=== PATIENT | male | born 1935 | race Caucasian/White ===

== ENCOUNTER 2016-06-11 11:05 | Inpatient (IN) | payer MEDICARE, OTHER ==
[2016-06-11 12:34] LABS: CHLORIDE,CL 96 mEq/L (98-106); SODIUM,NA 136 mEq/L (136-145)
[2016-06-11] MEDS ORDERED: Sodium Chloride 0.9% 500 ML IV SCH (13:00)
[2016-06-11] MEDS ORDERED: NS + KCl 20mEq/L 1,000 ML IV SCH (13:00)
--- NOTE | 2016-06-11 13:02 | EDM.PDOC ---
ED HPI GENERAL MEDICAL PROBLEM - General Chief Complaint: General Stated Complaint: confusion, incontinent, uncooperative Time Seen by Provider: 06/11/16 11:32 Source of Information: Reports: Patient, RN History Limitations: Reports: Altered mental status - History of Present Illness INITIAL COMMENTS - FREE TEXT/NARRATIVE: This patient is an 81 year old male that presents to the ER. Patient was brought in by family. Family not in room when I assessed patient. The patient upon my assessment is oriented to self and place. He says the year is "May. " The patient during my exam is cooperative. The patient reports to me he is perfect. The patient denies any symptoms or pain. The RN reports that the patient since discharge from the hospital on Sunday has had confusion. RN reports to me the patient fell yesterday without injury. The RN reports the says she has cleaned him up 5 times today. She said she can not take care of him at home. The patient arrives incontinent of urine and bowel. Patient denies guzman, dizziness, n, v, d, f, cp, soa. However, I do believe his history taking is accurate. I will order several labs, ct head, cxr, ekg, ua. Onset Date: 06/01/16 Duration: Day(s): (3), Getting worse Severity: moderate Improves with: Reports: None Worsens with: Reports: None Associated Symptoms: Reports: confusion. Denies: chest pain, cough, cough w sputum, diaphoresis, fever/chills, headaches, loss of appetite, malaise, nausea/ vomiting, rash, seizure, shortness of breath, syncope, weakness - Related Data Allergies Allergy/AdvReac Type Severity Reaction Status Date / Time No Known Allergies Allergy Verified 06/11/16 11:41 Home Meds: Home Meds ALPRAZolam [Xanax] 0.5 - 1 tab PO Q6H PRN 12/16/13 [History] Clopidogrel [Plavix] 75 mg PO DAILY 12/16/13 [History] Fish Oil/[place]-3 Fatty Acids [Fish Oil] 1,200 mg PO DAILY PRN 12/16/13 [History] Lisinopril 2.5 mg PO MOWEFR 12/16/13 [History] Metoprolol Succinate 25 mg PO DAILY 12/16/13 [History] Simvastatin [Zocor] 20 mg PO BEDTIME 12/16/13 [History] Polyethylene Glycol 3350 [Miralax] 17 gm PO DAILY 12/19/13 [History] Furosemide [Lasix] 60 mg PO DAILY #30 tablet 06/07/16 [Rx] Past Medical History HEENT History: Reports: Hard of hearing 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, High cholesterol, Pacemaker Gastrointestinal History: Reports: Chronic constipation Psychiatric History: Reports: Anxiety Social & Family History - Tobacco Use Smoking Status *Q: Former Smoker Years of Tobacco use: 20 Used Tobacco, but Quit: Yes Month Tobacco Last Used: 50 years ago Second Hand Smoke Exposure: No - Alcohol Use Days Per Week of Alcohol Use: 1 Number of Drinks Per Day: 1 Total Drinks Per Week: 1 - Recreational Drug Use Recreational Drug Use: No ED ROS GENERAL - Review of Systems Review Of Systems: See Below Constitutional: Reports: no symptoms HEENT: Reports: No symptoms Respiratory: Reports: no symptoms Cardiovascular: Reports: No symptoms Endocrine: Reports: no symptoms GI/Abdominal: Reports: Stool incontinence : Reports: incontinence Musculoskeletal: Reports: no symptoms Skin: Reports: no symptoms Neurological: Reports: confusion Psychiatric: Reports: No symptoms Hematologic/Lymphatic: Reports: no symptoms Immunologic: Reports: no symptoms ED EXAM, GENERAL - Physical Exam Exam: See Below Exam Limited By: Altered mental status General Appearance: alert, WD/WN, no apparent distress Eye Exam: bilateral eye: normal inspection, PERRL Ears: normal external exam, normal canal, hearing grossly normal, normal TMs Ear Exam: bilateral ear: auricle normal, canal normal, TM normal Nose: normal inspection, normal mucosa, no blood Throat/Mouth: Normal inspection, Normal lips, Normal gums, Normal oropharynx, Normal voice, No airway compromise Head: atraumatic, normocephalic Neck: normal inspection, supple, non-tender, full range of motion Respiratory/Chest: no respiratory distress, lungs clear, normal breath sounds, no accessory muscle use Cardiovascular: normal peripheral pulses, regular rate, rhythm, no gallop, no JVD, no murmur, no rub Peripheral Pulses: 2+: radial (L), radial (R), posterior tibial (L), posterior tibial (R), dorsalis pedis (L), dorsalis pedis (R) GI/Abdominal: normal bowel sounds, soft, non tender, no organomegaly, no distention, no abnormal bruit, no mass Back Exam: normal inspection, full range of motion Extremities: normal inspection, normal range of motion, non-tender, normal capillary refill, pedal edema (+1 BLE. ) Neurological: alert, confused (oreinted to self and place. ), abnormal gait Psychiatric: normal affect, normal mood Skin Exam: Warm, Dry, Intact, Normal color, No rash Lymphatic: no adenopathy EKG INTERPRETATION EKG Date: 06/11/16 Time: 12:34 Rate (beats/min): 82 EKG Interpretation Comments: artifact. No ST elevations. Course - Vital Signs Last Recorded V/S: Last Vital Signs Temp 97.6 F 06/11/16 11:20 Pulse 86 06/11/16 11:20 Resp 16 06/11/16 11:20 BP 153/78 H 06/11/16 11:20 Pulse Ox 98 06/11/16 11:20 - Orders/Labs/Meds Orders: Active Orders 24 hr Category Date Time Status Patient Status Manage Transfer [TRANSFER] Routine ADT 06/11/16 14:04 Ordered EKG Documentation Completion [RC] STAT Care 06/11/16 11:50 Inactive Chest 1V Frontal [CR] Stat Exams 06/11/16 11:50 Taken Head wo Cont [CT] Stat Exams 06/11/16 11:50 Taken C DIFFICILE BY DNA [RM] Stat Lab 06/11/16 13:46 Ordered CULTURE BLOOD [BC] Stat Lab 06/11/16 12:00 Received CULTURE BLOOD [BC] Stat Lab 06/11/16 12:05 Received STOOL CULTURE [MREF] Stat Lab 06/11/16 13:46 Ordered UA W/MICROSCOPIC [URIN] Stat Lab 06/11/16 11:50 Uncollected WBC, STOOL [OP] Stat Lab 06/11/16 13:46 Ordered NS + KCl 20mEq/L [Normal Saline with 20 mEq KCl] 1,000 Med 06/11/16 13:00 Active ml IV ASDIRECTED Sodium Chloride 0.9% [Normal Saline] 500 ml Med 06/11/16 13:00 Active IV .BOLUS Blood Culture x2 Reflex Set [OM.PC] Stat Oth 06/11/16 11:50 Ordered Resuscitation Status Routine Resus Stat 06/11/16 14:05 Ordered Medication Orders Sodium Chloride (Normal Saline) 500 mls @ 500 mls/hr IV .BOLUS MARA Potassium Chloride/Sodium Chloride (Normal Saline With 20 Meq Kcl) 1,000 mls @ 100 mls/hr IV ASDIRECTED [facility] Labs: Laboratory Tests 06/11/16 06/11/16 06/11/16 Range/Units 12:00 12:00 12:05 WBC 14.5 H (5.0-10.0) 10^3/uL RBC 4.96 (4.50-6.00) 10^6/uL Hgb 15.0 (14.0-18.0) g/dL Hct 42.7 (40.0-54.0) % MCV 86.1 (82.0-94.0) fL MCH 30.2 (27.0-32.0) pg MCHC 35.1 (33.0-38.0) g/dL RDW Coeff of Amadeo 12.9 (11.0-15.0) % Plt Count 188 (150-400) 10^3/uL Neut % (Auto) 71.7 (35-85) % Lymph % (Auto) 17.7 (10-55) % Clare % (Auto) 10.2 (0-16) % Eos % (Auto) 0.3 (0-5) % Baso % (Auto) 0.1 (0-3) % Neut # 10.39 H (1.80-7.00) 10^3/uL Lymph # 2.56 (1.00-4.80) 10^3/uL Clare # 1.47 H (0.00-0.80) 10^3/uL Eos # 0.04 (0.00-0.45) 10^3/uL Baso # 0.02 10^3/uL Sodium 136 (136-145) mEq/L Potassium 2.7 L* D (3.5-5.0) mEq/L Chloride 96 L (98-106) mEq/L Carbon Dioxide 32 (21-32) mmol/L BUN 16 D (7-18) mg/dL Creatinine 1.1 (0.7-1.3) mg/dL Est Cr Clr Drug Dosing TNP Estimated GFR (MDRD) > 60 (>=60) mL/min Glucose 121 H (75-99) mg/dL Lactic Acid 1.4 (0.4-2.0) mmol/L Calcium 8.9 (8.4-10.1) mg/dL Total Bilirubin 1.6 H (0.0-1.0) mg/dL AST 23 (15-37) U/L ALT 36 (12-78) U/L Alkaline Phosphatase 70 (46-116) U/L Troponin I 0.051 (0.00-0.06) ng/mL C-Reactive Protein 0.4 (0.2-0.8) mg/dL Hcf-G-[id number] Pept 2728 H (0-1000) pg/nL Total Protein 6.5 (6.4-8.2) g/dL Albumin 3.4 (3.4-5.0) g/dL Meds: Medications Generic Name Dose Route Start Last Admin Trade Name Freq PRN Reason Stop Dose Admin Sodium Chloride 500 mls @ 500 mls/hr 06/11/16 13:00 Normal Saline IV .BOLUS MARA Potassium Chloride/Sodium Chloride 1,000 mls @ 100 mls/hr 06/11/16 13:00 Normal Saline With 20 Meq Kcl IV ASDIRECTED MARA Discontinued Medications Generic Name Dose Route Start Last Admin Trade Name Freq PRN Reason Stop Dose Admin Loperamide HCl 2 mg 06/11/16 13:13 06/11/16 13:43 Imodium PO 06/11/16 13:14 2 mg ONETIME ONE Administration - Radiology Interpretation Free Text/Narrative:: CXR: Discussed with radiologist; no infiltreates, no pulmonary edema. negative. CT: Discussed with radiologist; negative. CT Results Date: 06/11/16 CT Results Time: 13:40 - Re-Assessments/Exams Free Text/Narrative Re-Assessment/Exam: 06/11/16 14:24 Patient is being combative hitting the pillow. The patient is now cussing staff. Have ordered Ativan in the inpatient order. 06/11/16 14:28 Patient now has had 6 BM incontinent episodes. Patient was given Immodium. Departure - Departure Time of Disposition: 13:59 Disposition: Admitted As Inpatient 65 Condition: fair Clinical Impression: Hypokalemia, Dehydration Stool incontinence Qualifiers: Fecal incontinence type: full incontinence of feces Qualified Code(s): R15.9 - Full incontinence of feces Urinary incontinence Qualifiers: Urinary Incontinence type: unspecified incontinence Qualified Code(s): R32 - Unspecified urinary incontinence Leukocytosis Qualifiers: Leukocytosis type: lymphocytosis Qualified Code(s): D72.820 - Lymphocytosis ( symptomatic) Altered mental status Qualifiers: Altered mental status type: disorientation Qualified Code(s): R41.0 - Disorientation, unspecified Referrals: Noe Cueto MD [Primary Care Provider] - Forms: ED Department Discharge - My Orders Last 24 Hours: My Active Orders 06/11/16 11:50 EKG Documentation Completion [RC] STAT Chest 1V Frontal [CR] Stat Head wo Cont [CT] Stat UA W/MICROSCOPIC [URIN] Stat Blood Culture x2 Reflex Set [OM.PC] Stat 06/11/16 12:00 CULTURE BLOOD [BC] Stat 06/11/16 12:05 CULTURE BLOOD [BC] Stat 06/11/16 13:00 NS + KCl 20mEq/L [Normal Saline with 20 mEq KCl] 1,000 ml IV ASDIRECTED Sodium Chloride 0.9% [Normal Saline] 500 ml IV .BOLUS 06/11/16 13:46 C DIFFICILE BY DNA [RM] Stat STOOL CULTURE [MREF] Stat WBC, STOOL [OP] Stat 06/11/16 14:04 Patient Status Manage Transfer [TRANSFER] Routine 06/11/16 14:05 Resuscitation Status Routine - Assessment/Plan Last 24 Hours: My Active Orders 06/11/16 11:50 EKG Documentation Completion [RC] STAT Chest 1V Frontal [CR] Stat Head wo Cont [CT] Stat UA W/MICROSCOPIC [URIN] Stat Blood Culture x2 Reflex Set [OM.PC] Stat 06/11/16 12:00 CULTURE BLOOD [BC] Stat 06/11/16 12:05 CULTURE BLOOD [BC] Stat 06/11/16 13:00 NS + KCl 20mEq/L [Normal Saline with 20 mEq KCl] 1,000 ml IV ASDIRECTED Sodium Chloride 0.9% [Normal Saline] 500 ml IV .BOLUS 06/11/16 13:46 C DIFFICILE BY DNA [RM] Stat STOOL CULTURE [MREF] Stat WBC, STOOL [OP] Stat 06/11/16 14:04 Patient Status Manage Transfer [TRANSFER] Routine 06/11/16 14:05 Resuscitation Status Routine Plan: SEE RN NOTE FOR PFSH. PLEASE USE MY ER H&P ADMITTING H&P.
[2016-06-11] MEDS ORDERED: Loperamide 2 MG Cap PO ONE ×2 (13:13→15:13)
[2016-06-11] MEDS ORDERED: Ondansetron 4 MG/2 ML SDV IV PRN (14:38)
[2016-06-11] MEDS ORDERED: Ibuprofen 200 MG Tab PO PRN (14:38)
[2016-06-11] MEDS ORDERED: LORazepam 2 MG/ML Syringe IVPUSH ONE ×3 (14:45→14:54)
[2016-06-11] MEDS ORDERED: LORazepam 2 MG/ML Syringe ONE (15:06)
[2016-06-11] MEDS: LORazepam 2 MG/ML Syringe IVPUSH PRN ×2 (15:24→21:32)
[2016-06-11] MEDS: Enoxaparin 40 MG/0.4 ML Syringe SUBCUT SCH (16:32)
[2016-06-11] MEDS: Vancomycin 125 MG/2.5 ML Oral Solution 2.5 ML UD Cup PO SCH ×2 (16:32→19:39)
[2016-06-11] MEDS: metroNIDAZOLE/Normal Saline 500 MG in Premix Bag 1 BAG IV SCH ×2 (16:32→23:12)
[2016-06-11] MEDS: NS + KCl 20mEq/L 1,000 ML IV SCH (17:56)
[2016-06-11] MEDS: Simvastatin 20 MG Tab PO SCH (19:38)
[2016-06-11] MEDS ORDERED: Haloperidol Lactate 5 MG/ML SDV IVPUSH ONE ×2 (20:00)
[2016-06-12] MEDS: ALPRAZolam 0.25 MG Tab PO PRN (01:31)
[2016-06-12] MEDS: NS + KCl 20mEq/L 1,000 ML IV SCH (05:04)
[2016-06-12] MEDS: metroNIDAZOLE/Normal Saline 500 MG in Premix Bag 1 BAG IV SCH (06:27)
[2016-06-12 07:20] LABS: CHLORIDE,CL 101 mEq/L (98-106); SODIUM,NA 139 mEq/L (136-145)
[2016-06-12] MEDS: LORazepam 2 MG/ML Syringe IVPUSH PRN (07:26)
[2016-06-12] MEDS: Metoprolol Succinate 25 MG Tab.ER PO SCH (07:27)
[2016-06-12] MEDS: Furosemide 20 MG Tab PO SCH ×2 (07:27→08:51)
[2016-06-12] MEDS: Clopidogrel 75 MG Tab PO SCH (07:27)
[2016-06-12] MEDS: Vancomycin 125 MG/2.5 ML Oral Solution 2.5 ML UD Cup PO SCH (07:50)
[2016-06-12] MEDS ORDERED: Vancomycin 1 GM SDV ONE (07:51)
[2016-06-12] MEDS ORDERED: NS + KCl 20mEq/L 1,000 ML IV SCH (08:00)
[2016-06-12] MEDS: Lisinopril 5 MG Tab PO SCH (08:14)
[2016-06-12] MEDS ORDERED: Potassium Chloride 40 MEQ in Premix Bag 1 BAG IV ONE (08:33)
[2016-06-12] MEDS ORDERED: Acetaminophen 650 MG Supp RECTAL PRN (13:20)
[2016-06-12] MEDS ORDERED: Levofloxacin/Dextrose 5%-Water 500 MG in Premix Bag 1 BAG IV SCH (14:00)
--- NOTE | 2016-06-12 14:13 | PCM.PN ---
- General Info Date of Service: 06/12/16 Admission Dx/Problem (Free Text): Hypokalemia Confusion Functional Status: Reports: pain controlled, tolerating diet - Review of Systems General: Reports: other (review of symptoms difficult to obtain as patient does not answer questions asked this am.). Denies: fever HEENT: Reports: no symptoms Pulmonary: Reports: no symptoms Cardiovascular: Reports: no symptoms Gastrointestinal: Reports: Diarrhea (Did have several loose stools in the ER, given Immodium after stool collection. One loose stool since admission.). Denies: Vomiting Genitourinary: Reports: incontinence Neurological: Reports: confusion - Patient Data Vitals - most recent: Last Vital Signs Temp 99.0 F 06/12/16 12:00 Pulse 109 H 06/12/16 12:00 Resp 20 06/12/16 12:00 BP 171/92 H 06/12/16 12:00 Pulse Ox 95 06/12/16 12:00 Weight - most recent: 183 lb 12.8 oz I&O - last 24 hours: Intake & Output 06/11/16 06/12/16 06/12/16 22:59 06:59 14:59 Intake Total 500 1300 Balance 500 1300 Lab Results last 24 hrs: Laboratory Results - last 24 hr 06/12/16 06/12/16 06/12/16 Range/Units 07:05 07:05 07:05 WBC 13.1 H (5.0-10.0) 10^3/uL RBC 4.47 L (4.50-6.00) 10^6/uL Hgb 13.5 L (14.0-18.0) g/dL Hct 38.9 L (40.0-54.0) % MCV 87.0 (82.0-94.0) fL MCH 30.2 (27.0-32.0) pg MCHC 34.7 (33.0-38.0) g/dL RDW Coeff of Amadeo 12.8 (11.0-15.0) % Plt Count 165 (150-400) 10^3/uL Neut % (Auto) 70.4 (35-85) % Lymph % (Auto) 19.4 (10-55) % Stone % (Auto) 9.7 (0-16) % Eos % (Auto) 0.3 (0-5) % Baso % (Auto) 0.2 (0-3) % Neut # 9.19 H (1.80-7.00) 10^3/uL Lymph # 2.53 (1.00-4.80) 10^3/uL Stone # 1.27 H (0.00-0.80) 10^3/uL Eos # 0.04 (0.00-0.45) 10^3/uL Baso # 0.03 10^3/uL Sodium 139 (136-145) mEq/L Potassium 2.8 L* (3.5-5.0) mEq/L Chloride 101 (98-106) mEq/L Carbon Dioxide 31 (21-32) mmol/L BUN 12 (7-18) mg/dL Creatinine 1.0 (0.7-1.3) mg/dL Est Cr Clr Drug Dosing 62.51 mL/min Estimated GFR (MDRD) > 60 (>=60) mL/min Glucose 106 H (75-99) mg/dL Calcium 8.2 L (8.4-10.1) mg/dL Magnesium 1.8 (1.8-2.4) mg/dL Jnn-U-Slrxayljido Pept 3709 H (0-1000) pg/nL Gallo Results last 24 hrs: Microbiology 06/12/16 07:00 Stool for WBCs - Final Stool / Feces NO WBC SEEN 06/12/16 07:00 C. difficile DNA Amplification - Final Stool / Feces NEGATIVE CDIFF BY DNA Med Orders - Current: Current Medications Acetaminophen (Tylenol) 650 mg PO Q4H PRN PRN Reason: Pain (Mild 1-3)/fever Acetaminophen (Tylenol) 650 mg RECTAL Q4H PRN PRN Reason: Fever Last Admin: 06/12/16 13:49 Dose: 650 mg Alprazolam (Xanax) 1 mg PO Q6H PRN PRN Reason: Anxiety/Sleep Last Admin: 06/12/16 01:31 Dose: 1 mg Clopidogrel Bisulfate (Plavix) 75 mg PO DAILY [facility] Last Admin: 06/12/16 07:27 Dose: 75 mg Enoxaparin Sodium (Lovenox) 40 mg SUBCUT Q24H [facility] Last Admin: 06/11/16 16:32 Dose: 40 mg Furosemide (Lasix) 60 mg PO DAILY [facility] Last Admin: 06/12/16 08:51 Dose: 60 mg Ibuprofen (Motrin) 600 mg PO Q6H PRN PRN Reason: Pain (mild 1-3) Lisinopril (Prinivil) 2.5 mg PO MoWeFr@0900 [facility] Last Admin: 06/12/16 08:14 Dose: 2.5 mg Lorazepam (Ativan) 1 mg IVPUSH Q6H PRN PRN Reason: Anxiety Last Admin: 06/12/16 07:26 Dose: 1 mg Metoprolol Succinate (Toprol Xl) 25 mg PO DAILY [facility] Last Admin: 06/12/16 07:27 Dose: 25 mg Non-Formulary Medication (Fish Oil/[place]-3 Fatty Acids [Fish Oil]) 1,200 mg PO DAILY PRN PRN Reason: Supplement Ondansetron HCl (Zofran) 4 mg IV Q6H PRN PRN Reason: Nausea/Vomiting Potassium Chloride (Klor-Con 10) 20 meq PO BIDMEALS [facility] Simvastatin (Zocor) 20 mg PO BEDTIME [facility] Last Admin: 06/11/16 19:38 Dose: 20 mg Discontinued Medications Haloperidol Lactate (Haldol) 2 mg IVPUSH ONETIME ONE Stop: 06/11/16 20:01 Haloperidol Lactate (Haldol) 2.5 mg IVPUSH ONETIME ONE Stop: 06/11/16 20:01 Last Admin: 06/11/16 19:41 Dose: 2.5 mg Sodium Chloride (Normal Saline) 500 mls @ 500 mls/hr IV .BOLUS [facility] Last Admin: 06/11/16 15:05 Dose: 500 mls/hr Potassium Chloride/Sodium Chloride (Normal Saline With 20 Meq Kcl) 1,000 mls @ 100 mls/hr IV ASDIRECTED [facility] Potassium Chloride/Sodium Chloride (Normal Saline With 20 Meq Kcl) 1,000 mls @ 100 mls/hr IV ASDIRECTED [facility] Stop: 06/13/16 08:00 Last Admin: 06/12/16 05:04 Dose: 100 mls/hr Metronidazole 500 mg/ Premix 100 mls @ 100 mls/hr IV Q8H [facility] Last Admin: 06/12/16 06:27 Dose: 100 mls/hr Potassium Chloride/Sodium Chloride (Normal Saline With 20 Meq Kcl) 1,000 mls @ 100 mls/hr IV ASDIRECTED [facility] Potassium Chloride 40 meq/ (Premix) 100 mls @ 25 mls/hr IV ONETIME ONE Stop: 06/12/16 12:32 Last Admin: 06/12/16 08:52 Dose: 25 mls/hr Loperamide HCl (Imodium) 2 mg PO ONETIME ONE Stop: 06/11/16 13:14 Last Admin: 06/11/16 13:43 Dose: 2 mg Loperamide HCl (Imodium) 2 mg PO ONETIME ONE Stop: 06/11/16 15:14 Last Admin: 06/11/16 15:44 Dose: 2 mg Lorazepam (Ativan) 1 mg IVPUSH ONETIME ONE Stop: 06/11/16 14:55 Last Admin: 06/11/16 15:24 Dose: 1 mg Lorazepam (Ativan) Confirm Administered Dose 2 mg .ROUTE .STK-MED ONE Stop: 06/11/16 15:07 Last Admin: 06/11/16 15:37 Dose: Not Given Lorazepam (Ativan) 1 mg IVPUSH ONETIME ONE Stop: 06/11/16 14:46 Last Admin: 06/11/16 14:45 Dose: 1 mg Lorazepam (Ativan) 1 mg IVPUSH ONETIME ONE Stop: 06/11/16 14:51 Last Admin: 06/11/16 14:50 Dose: 1 mg Vancomycin HCl (Vancocin 125 Mg/2.5 Ml Soln) 500 mg PO QID MARA Last Admin: 06/12/16 07:50 Dose: 500 mg Vancomycin HCl (Vancomycin) Confirm Administered Dose 1 gm .ROUTE .STK-MED ONE Stop: 06/12/16 07:52 Last Admin: 06/12/16 07:50 Dose: Not Given - Exam General: other (patient sleepy this am) HEENT: Mucous membr. moist/pink Neck: supple Lungs: Clear to auscultation, Normal respiratory effort Cardiovascular: regular rate, regular rhythm Abdomen: bowel sounds present, soft, no tenderness Extremities: edema (1+ edema) Skin: warm, dry Neurological: no new focal deficit - Problem List & Annotations (1) Altered mental status SNOMED Code(s): 470190345 Code(s): R41.82 - ALTERED MENTAL STATUS, UNSPECIFIED Status: Acute Priority: High Current Visit: Yes Qualifiers: Altered mental status type: disorientation Qualified Code(s): R41.0 - Disorientation, unspecified (2) Hypokalemia SNOMED Code(s): 32702535 Code(s): E87.6 - HYPOKALEMIA Status: Acute Priority: High Current Visit : Yes - Problem List Review Problem List Initiated/Reviewed/Updated: Yes - My Orders Last 24 Hours: My Active Orders 06/12/16 17:30 Potassium Chloride [Klor-Con 10] 20 meq PO BIDMEALS - Assessment Assessment:: Hypokalemia Diarrhea Altered Mental Status - Plan Plan:: Patient is sleepy this am. Nurse reports he was restless earlier this am. Has been uncooperative, combative at times. Had one loose stool since admission. Stool culture and c diff ordered. Awaiting results. Vitals noted. Blood pressure elevated at times. Afebrile. Labs reviewed. WBC 13.5, CRP was normal yesterday. Potassium still low at 2.8. Magnesium normal at 1.8. Will continue with Vanco and Flagyl until c diff report received. IV potassium 40 meq ordered as well as added Kdur 20 meq BID. Will reevaluate labs in am. [facility] no [facility] able to [facility] for him and it has been very difficult caring for him since his discharge last week.
[2016-06-12] MEDS: Enoxaparin 40 MG/0.4 ML Syringe SUBCUT SCH (14:33)
[2016-06-12] MEDS: Potassium Chloride 10 MEQ Tab.ER PO SCH (17:55)
[2016-06-12] MEDS: risperiDONE 0.25 MG Tab PO SCH (20:22)
[2016-06-12] MEDS: Simvastatin 20 MG Tab PO SCH (20:22)
[2016-06-12] MEDS: Acetaminophen 325 MG Tab PO PRN (20:24)
[2016-06-13] MEDS: Potassium Chloride 10 MEQ Tab.ER PO SCH ×2 (07:47→16:50)
[2016-06-13] MEDS: Furosemide 20 MG Tab PO SCH (07:47)
[2016-06-13] MEDS: Metoprolol Succinate 25 MG Tab.ER PO SCH (07:47)
[2016-06-13] MEDS: Clopidogrel 75 MG Tab PO SCH (07:47)
[2016-06-13] MEDS ORDERED: OMEGA PO PRN (07:57)
[2016-06-13] MEDS ORDERED: FATTY ACIDS PO PRN (07:57)
[2016-06-13] MEDS ORDERED: FISH OIL PO PRN (07:57)
[2016-06-13] MEDS ORDERED: Clindamycin Phosphate in D5W 300 MG in Premix Bag 1 BAG IV ONE ×2 (09:15)
[2016-06-13] MEDS: risperiDONE 0.25 MG Tab PO SCH ×2 (09:38→20:24)
[2016-06-13] MEDS: Albuterol/Ipratropium 3.0-0.5 MG/3 ML Neb Soln NEB SCH ×4 (10:00→20:34)
[2016-06-13] MEDS ORDERED: Levofloxacin/Dextrose 5%-Water 500 MG in Premix Bag 1 BAG IV SCH (12:00)
[2016-06-13] MEDS: Enoxaparin 40 MG/0.4 ML Syringe SUBCUT SCH (12:45)
--- NOTE | 2016-06-13 12:54 | PCM.PN ---
- General Info Date of Service: 06/13/16 Admission Dx/Problem (Free Text): Hypokalemia Confusion Functional Status: Reports: new symptoms (more sleepy today, questionably from the Risperdal given last night.) - Review of Systems General: Reports: weakness, fatigue, malaise, other (no review systems able to be obtained as patient doesn't answer any questions this am, lethargic. Did arise for breakfast but still not answering questions appropriately. Staff reports increased behaviors yesterday. Did sleep through the night after Risperdal started.). Denies: fever Pulmonary: Reports: cough Musculoskeletal: Reports: shoulder pain Skin: Reports: no symptoms Neurological: Reports: weakness Psychiatric: Reports: agitation (agitated all day yesterday) - Patient Data Vitals - most recent: Last Vital Signs Temp 96.5 F 06/13/16 11:53 Pulse 58 L 06/13/16 11:53 Resp 20 06/13/16 11:53 BP 96/54 L 06/13/16 11:53 Pulse Ox 99 06/13/16 11:53 Weight - most recent: 183 lb 12.8 oz I&O - last 24 hours: Intake & Output 06/12/16 06/13/16 06/13/16 22:59 06:59 14:59 Intake Total 180 150 Balance 180 150 Lab Results last 24 hrs: Laboratory Results - last 24 hr 06/12/16 06/13/16 06/13/16 Range/Units 13:30 07:00 07:00 WBC 27.6 H* (5.0-10.0) 10^3/uL RBC 4.04 L (4.50-6.00) 10^6/uL Hgb 12.4 L (14.0-18.0) g/dL Hct 35.9 L (40.0-54.0) % MCV 88.9 (82.0-94.0) fL MCH 30.7 (27.0-32.0) pg MCHC 34.5 (33.0-38.0) g/dL RDW Coeff of Amadeo 13.2 (11.0-15.0) % Plt Count 144 L (150-400) 10^3/uL Add Manual Diff Yes Neutrophils % (Manual) 87 H (35-85) % Band Neutrophils % 3 (0-5) % Lymphocytes % (Manual) 7 L (21-55) % Monocytes % (Manual) 3 (2-12) % Absolute Neutrophils 24.84 H (1.80-7.00) 10^3/uL Lymphocytes # (Manual) 1.93 (1.00-4.80) 10^3/uL Monocytes # (Manual) 0.83 H (0.00-0.80) 10^3/uL Sodium 140 (136-145) mEq/L Potassium 3.4 L D (3.5-5.0) mEq/L Chloride 104 (98-106) mEq/L Carbon Dioxide 29 (21-32) mmol/L BUN 23 H D (7-18) mg/dL Creatinine 1.6 H D (0.7-1.3) mg/dL Est Cr Clr Drug Dosing 39.07 mL/min Estimated GFR (MDRD) 42 L (>=60) mL/min Glucose 105 H (75-99) mg/dL Calcium 8.2 L (8.4-10.1) mg/dL C-Reactive Protein (0.2-0.8) mg/dL [id number] Pept 7211 H (0-1000) pg/nL Urine Color Red (YELLOW) Urine Appearance Cloudy (CLEAR) Urine pH >= 9.0 H (4.5-8.0) Ur Specific [place] 1.015 (1.003-1.020) Urine Protein 100 H (NEGATIVE) mg/dL Urine Glucose (UA) Negative (NEGATIVE) mg/dL Urine Ketones Negative (NEGATIVE) mg/dL Urine Occult Blood Large H (NEGATIVE) Urine Nitrite Negative (NEGATIVE) Urine Bilirubin Negative (NEGATIVE) Urine Urobilinogen 0.2 (0.2-1.0) EU/dL Ur Leukocyte Esterase Trace H (NEGATIVE) Urine RBC >100 H (0-5) /HPF Urine WBC Not seen (0-5) /HPF 06/13/16 Range/Units 08:21 WBC (5.0-10.0) 10^3/uL RBC (4.50-6.00) 10^6/uL Hgb (14.0-18.0) g/dL Hct (40.0-54.0) % MCV (82.0-94.0) fL MCH (27.0-32.0) pg MCHC (33.0-38.0) g/dL RDW Coeff of Amadeo (11.0-15.0) % Plt Count (150-400) 10^3/uL Add Manual Diff Neutrophils % (Manual) (35-85) % Band Neutrophils % (0-5) % Lymphocytes % (Manual) (21-55) % Monocytes % (Manual) (2-12) % Absolute Neutrophils (1.80-7.00) 10^3/uL Lymphocytes # (Manual) (1.00-4.80) 10^3/uL Monocytes # (Manual) (0.00-0.80) 10^3/uL Sodium (136-145) mEq/L Potassium (3.5-5.0) mEq/L Chloride (98-106) mEq/L Carbon Dioxide (21-32) mmol/L BUN (7-18) mg/dL Creatinine (0.7-1.3) mg/dL Est Cr Clr Drug Dosing mL/min Estimated GFR (MDRD) (>=60) mL/min Glucose (75-99) mg/dL Calcium (8.4-10.1) mg/dL C-Reactive Protein 8.5 H (0.2-0.8) mg/dL [id number]-Vnrcqbwqeyh Pept (0-1000) pg/nL Urine Color (YELLOW) Urine Appearance (CLEAR) Urine pH (4.5-8.0) Ur Specific [place] (1.003-1.020) Urine Protein (NEGATIVE) mg/dL Urine Glucose (UA) (NEGATIVE) mg/dL Urine Ketones (NEGATIVE) mg/dL Urine Occult Blood (NEGATIVE) Urine Nitrite (NEGATIVE) Urine Bilirubin (NEGATIVE) Urine Urobilinogen (0.2-1.0) EU/dL Ur Leukocyte Esterase (NEGATIVE) Urine RBC (0-5) /HPF Urine WBC (0-5) /HPF Gallo Results last 24 hrs: Microbiology 06/12/16 14:00 Urine Culture - Final Urine, Voided Gram Positive Cocci Gram Negative Rods 06/12/16 14:16 Influenza Type A Antigen Screen - Final Nasopharyngeal Swab - Nare, Unspecified NEGATIVE INFLUENZA A VIRUS AG Influenza Type B Antigen Screen - Final NEGATIVE INFLUENZA B VIRUS AG 06/12/16 07:00 Stool for WBCs - Final Stool / Feces NO WBC SEEN 06/12/16 07:00 C. difficile DNA Amplification - Final Stool / Feces NEGATIVE CDIFF BY DNA Med Orders - Current: Current Medications Acetaminophen (Tylenol) 650 mg PO Q4H PRN PRN Reason: Pain (Mild 1-3)/fever Last Admin: 06/12/16 20:24 Dose: 650 mg Acetaminophen (Tylenol) 650 mg RECTAL Q4H PRN PRN Reason: Fever Last Admin: 06/12/16 13:49 Dose: 650 mg Albuterol/Ipratropium (Duoneb 3.0-0.5 Mg/3 Ml) 3 ml NEB QIDRT [facility] Last Admin: 06/13/16 10:00 Dose: 3 ml Alprazolam (Xanax) 1 mg PO Q6H PRN PRN Reason: Anxiety/Sleep Last Admin: 06/12/16 01:31 Dose: 1 mg Clopidogrel Bisulfate (Plavix) 75 mg PO DAILY [facility] Last Admin: 06/13/16 07:47 Dose: 75 mg Enoxaparin Sodium (Lovenox) 40 mg SUBCUT Q24H [facility] Furosemide (Lasix) 60 mg PO DAILY [facility] Last Admin: 06/13/16 07:47 Dose: 60 mg Clindamycin Phosphate 300 mg/ (Premix) 50 mls @ 100 mls/hr IV Q6H [facility] Ibuprofen (Motrin) 600 mg PO Q6H PRN PRN Reason: Pain (mild 1-3) Last Admin: 06/12/16 16:11 Dose: 600 mg Lisinopril (Prinivil) 2.5 mg PO MoWeFr@0900 [facility] Last Admin: 06/12/16 08:14 Dose: 2.5 mg Lorazepam (Ativan) 1 mg IVPUSH Q6H PRN PRN Reason: Anxiety Last Admin: 06/12/16 07:26 Dose: 1 mg Metoprolol Succinate (Toprol Xl) 25 mg PO DAILY [facility] Last Admin: 06/13/16 07:47 Dose: 25 mg Non-Formulary Medication (Fish Oil/Gordon-3 Fatty Acids [Fish Oil]) 1,200 mg PO DAILY PRN PRN Reason: Supplement Ondansetron HCl (Zofran) 4 mg IV Q6H PRN PRN Reason: Nausea/Vomiting Potassium Chloride (Klor-Con 10) 20 meq PO BIDMEALS [facility] Last Admin: 06/13/16 07:47 Dose: 20 meq Risperidone (Risperidal) 0.25 mg PO BID [facility] Simvastatin (Zocor) 20 mg PO BEDTIME [facility] Last Admin: 06/12/16 20:22 Dose: 20 mg Discontinued Medications Enoxaparin Sodium (Lovenox) 40 mg SUBCUT Q24H [facility] Last Admin: 06/12/16 14:33 Dose: 40 mg Haloperidol Lactate (Haldol) 2 mg IVPUSH ONETIME ONE Stop: 06/11/16 20:01 Haloperidol Lactate (Haldol) 2.5 mg IVPUSH ONETIME ONE Stop: 06/11/16 20:01 Last Admin: 06/11/16 19:41 Dose: 2.5 mg Sodium Chloride (Normal Saline) 500 mls @ 500 mls/hr IV .BOLUS [facility] Last Admin: 06/11/16 15:05 Dose: 500 mls/hr Potassium Chloride/Sodium Chloride (Normal Saline With 20 Meq Kcl) 1,000 mls @ 100 mls/hr IV ASDIRECTED [facility] Potassium Chloride/Sodium Chloride (Normal Saline With 20 Meq Kcl) 1,000 mls @ 100 mls/hr IV ASDIRECTED [facility] Stop: 06/13/16 08:00 Last Admin: 06/12/16 05:04 Dose: 100 mls/hr Metronidazole 500 mg/ Premix 100 mls @ 100 mls/hr IV Q8H [facility] Last Admin: 06/12/16 06:27 Dose: 100 mls/hr Potassium Chloride/Sodium Chloride (Normal Saline With 20 Meq Kcl) 1,000 mls @ 100 mls/hr IV ASDIRECTED [facility] Potassium Chloride 40 meq/ (Premix) 100 mls @ 25 mls/hr IV ONETIME ONE Stop: 06/12/16 12:32 Last Admin: 06/12/16 08:52 Dose: 25 mls/hr Levofloxacin/Dextrose 500 mg/ (Premix) 100 mls @ 100 mls/hr IV Q24H [facility] Last Admin: 06/12/16 14:33 Dose: 100 mls/hr Levofloxacin/Dextrose 500 mg/ (Premix) 100 mls @ 100 mls/hr IV Q24H [facility] Clindamycin Phosphate 300 mg/ (Premix) 50 mls @ 100 mls/hr IV ONETIME ONE Stop: 06/13/16 09:44 Last Admin: 06/13/16 09:36 Dose: 100 mls/hr Loperamide HCl (Imodium) 2 mg PO ONETIME ONE Stop: 06/11/16 13:14 Last Admin: 06/11/16 13:43 Dose: 2 mg Loperamide HCl (Imodium) 2 mg PO ONETIME ONE Stop: 06/11/16 15:14 Last Admin: 06/11/16 15:44 Dose: 2 mg Lorazepam (Ativan) 1 mg IVPUSH ONETIME ONE Stop: 06/11/16 14:55 Last Admin: 06/11/16 15:24 Dose: 1 mg Lorazepam (Ativan) Confirm Administered Dose 2 mg .ROUTE .STK-MED ONE Stop: 06/11/16 15:07 Last Admin: 06/11/16 15:37 Dose: Not Given Lorazepam (Ativan) 1 mg IVPUSH ONETIME ONE Stop: 06/11/16 14:46 Last Admin: 06/11/16 14:45 Dose: 1 mg Lorazepam (Ativan) 1 mg IVPUSH ONETIME ONE Stop: 06/11/16 14:51 Last Admin: 06/11/16 14:50 Dose: 1 mg Risperidone (Risperidal) 0.5 mg PO BID [facility] Last Admin: 06/13/16 09:38 Dose: Not Given Vancomycin HCl (Vancocin 125 Mg/2.5 Ml Soln) 500 mg PO QID [facility] Last Admin: 06/12/16 07:50 Dose: 500 mg Vancomycin HCl (Vancomycin) Confirm Administered Dose 1 gm .ROUTE .STK-MED ONE Stop: 06/12/16 07:52 Last Admin: 06/12/16 07:50 Dose: Not Given - Exam Quality Assessment: No: supplemental oxygen General: sedated. No: no acute distress HEENT: Mucous membr. moist/pink Neck: supple Lungs: Decreased breath sounds Cardiovascular: regular rate, regular rhythm Abdomen: bowel sounds present, soft, no tenderness Extremities: edema (1+ edema) Skin: warm, dry - Problem List & Annotations (1) Altered mental status SNOMED Code(s): 690190376 Code(s): R41.82 - ALTERED MENTAL STATUS, UNSPECIFIED Status: Acute Priority: High Current Visit: Yes Qualifiers: Altered mental status type: disorientation Qualified Code(s): R41.0 - Disorientation, unspecified (2) Hypokalemia SNOMED Code(s): 73295121 Code(s): E87.6 - HYPOKALEMIA Status: Acute Priority: High Current Visit : Yes - Problem List Review Problem List Initiated/Reviewed/Updated: Yes - My Orders Last 24 Hours: My Active Orders 06/12/16 14:19 Consult to Physical Therapy [PT Evaluation and Treatment] [CONS] Routine 06/12/16 17:30 Potassium Chloride [Klor-Con 10] 20 meq PO BIDMEALS 06/13/16 09:03 Respiratory Care Assess and Treatment [CONS] Routine Chest 1V Frontal [CR] Routine 06/13/16 09:05 RT Aerosol Therapy [RC] .PRN 06/13/16 09:10 Comfort Measures [OM.PC] Routine 06/13/16 09:12 risperiDONE [RisperiDAL] 0.25 mg PO BID 06/13/16 09:15 Albuterol/Ipratropium [DuoNeb 3.0-0.5 MG/3 ML] 3 ml NEB QIDRT 06/13/16 18:00 Clindamycin Phosphate in D5W [Cleocin in D5W] 300 mg Premix Bag 1 bag IV Q6H 06/13/16 Lunch Thickened Liquids [DIET] - Assessment Assessment:: Hypokalemia Diarrhea Altered Mental Status - Plan Plan:: Patient is sleepy this am. Nurse reports he was restless earlier this am. Has been uncooperative, combative at times. Had one loose stool since admission. Stool culture and c diff ordered. Awaiting results. Vitals noted. Blood pressure elevated at times. Afebrile. Labs reviewed. WBC 13.5, CRP was normal yesterday. Potassium still low at 2.8. Magnesium normal at 1.8. Will continue with Vanco and Flagyl until c diff report received. IV potassium 40 meq ordered as well as added Kdur 20 meq BID. Will reevaluate labs in am. Discharge plan to transfer to halfway as no longer able to care for him and it has been very difficult caring for him since his discharge last week. 06-13-2016 Patient more sleepy this am. Did get risperdal last evening due to increased behaviors during the day and patient slept all night. Able to awaken the patient after exam for breakfast. Does not answer questions. Does attempt to feed self though. at bedside. Lab changes noted. WBC up to 27.4 today from 13 yesterday. CRP also up now to 8.5. Question possible aspiration as has been having trouble with liquids and coughs while eating. Afebrile today and had not been able to find source of infection and now labs are worsening. Will stop Levaquin. Get a chest xray. Start Cleocin. Nebs and RT to evaluate. Inappropriate for discharge yet at this time.
[2016-06-13] MEDS: Clindamycin Phosphate in D5W 300 MG in Premix Bag 1 BAG IV SCH ×2 (17:29)
[2016-06-13] MEDS: Simvastatin 20 MG Tab PO SCH (20:24)
[2016-06-14] MEDS: Clindamycin Phosphate in D5W 300 MG in Premix Bag 1 BAG IV SCH ×4 (00:36→06:07)
[2016-06-14] MEDS: Furosemide 20 MG Tab PO SCH (07:33)
[2016-06-14] MEDS: Potassium Chloride 10 MEQ Tab.ER PO SCH ×2 (07:33→16:58)
[2016-06-14] MEDS: risperiDONE 0.25 MG Tab PO SCH ×2 (07:34→19:46)
[2016-06-14] MEDS: Clopidogrel 75 MG Tab PO SCH (07:34)
[2016-06-14] MEDS: Metoprolol Succinate 25 MG Tab.ER PO SCH (07:35)
[2016-06-14] MEDS: Lisinopril 5 MG Tab PO SCH (08:41)
[2016-06-14] MEDS ORDERED: Sodium Chloride 0.45% with KCl 1,000 ML IV SCH (09:15)
[2016-06-14] MEDS ORDERED: Levofloxacin/Dextrose 5%-Water 500 MG in Premix Bag 1 BAG IV ONE (09:30)
[2016-06-14] MEDS: Albuterol/Ipratropium 3.0-0.5 MG/3 ML Neb Soln NEB SCH ×4 (09:30→21:42)
[2016-06-14] MEDS: Enoxaparin 40 MG/0.4 ML Syringe SUBCUT SCH (12:10)
--- NOTE | 2016-06-14 12:34 | PCM.PN ---
- General Info Date of Service: 06/14/16 Admission Dx/Problem (Free Text): Hypokalemia Confusion Functional Status: Reports: tolerating diet - Review of Systems General: Reports: weakness, fatigue HEENT: Reports: no symptoms Pulmonary: Denies: shortness of breath, cough Cardiovascular: Denies: edema Gastrointestinal: Denies: Nausea, Vomiting Genitourinary: Reports: incontinence Neurological: Reports: confusion - Patient Data Vitals - most recent: Last Vital Signs Temp 98.1 F 06/14/16 08:00 Pulse 85 06/14/16 08:00 Resp 18 06/14/16 08:00 BP 143/80 H 06/14/16 08:41 Pulse Ox 97 06/14/16 08:00 Weight - most recent: 183 lb 12.8 oz I&O - last 24 hours: Intake & Output 06/13/16 06/14/16 06/14/16 22:59 06:59 14:59 Intake Total 990 800 Balance 990 800 Lab Results last 24 hrs: Laboratory Results - last 24 hr 06/14/16 06/14/16 Range/Units 07:46 07:46 WBC 17.9 H (5.0-10.0) 10^3/uL RBC 4.37 L (4.50-6.00) 10^6/uL Hgb 13.3 L (14.0-18.0) g/dL Hct 38.4 L (40.0-54.0) % MCV 87.9 (82.0-94.0) fL MCH 30.4 (27.0-32.0) pg MCHC 34.6 (33.0-38.0) g/dL RDW Coeff of Amadeo 13.5 (11.0-15.0) % Plt Count 162 (150-400) 10^3/uL Neut % (Auto) 81.9 (35-85) % Lymph % (Auto) 11.0 (10-55) % [place] % (Auto) 6.8 (0-16) % Eos % (Auto) 0.2 (0-5) % Baso % (Auto) 0.1 (0-3) % Neut # 14.64 H (1.80-7.00) 10^3/uL Lymph # 1.97 (1.00-4.80) 10^3/uL [place] # 1.21 H (0.00-0.80) 10^3/uL Eos # 0.04 (0.00-0.45) 10^3/uL Baso # 0.01 10^3/uL Sodium 139 (136-145) mEq/L Potassium 3.1 L (3.5-5.0) mEq/L Chloride 103 (98-106) mEq/L Carbon Dioxide 25 (21-32) mmol/L BUN 27 H (7-18) mg/dL Creatinine 1.7 H (0.7-1.3) mg/dL Est Cr Clr Drug Dosing 36.77 mL/min Estimated GFR (MDRD) 39 L (>=60) mL/min Glucose 111 H (75-99) mg/dL Calcium 8.6 (8.4-10.1) mg/dL C-Reactive Protein 8.5 H (0.2-0.8) mg/dL [id number] Pept 1814 H (0-1000) pg/nL Gallo Results last 24 hrs: Microbiology 06/12/16 07:00 Stool Aerobic Culture - Preliminary Stool / Feces 06/12/16 14:00 Urine Culture - Final Urine, Voided Enterococcus Faecalis Klebsiella Oxytoca Med Orders - Current: Current Medications Acetaminophen (Tylenol) 650 mg PO Q4H PRN PRN Reason: Pain (Mild 1-3)/fever Last Admin: 06/12/16 20:24 Dose: 650 mg Acetaminophen (Tylenol) 650 mg RECTAL Q4H PRN PRN Reason: Fever Last Admin: 06/12/16 13:49 Dose: 650 mg Albuterol/Ipratropium (Duoneb 3.0-0.5 Mg/3 Ml) 3 ml NEB QIDRT [facility] Last Admin: 06/13/16 20:34 Dose: 3 ml Alprazolam (Xanax) 1 mg PO Q6H PRN PRN Reason: Anxiety/Sleep Last Admin: 06/12/16 01:31 Dose: 1 mg Clopidogrel Bisulfate (Plavix) 75 mg PO DAILY [facility] Last Admin: 06/14/16 07:34 Dose: 75 mg Enoxaparin Sodium (Lovenox) 40 mg SUBCUT Q24H [facility] Last Admin: 06/14/16 12:10 Dose: 40 mg Furosemide (Lasix) 40 mg PO DAILY [facility] Potassium Chloride/Sodium Chloride (1/2 Ns With 20 Meq Kcl) 1,000 mls @ 40 mls/ hr IV ASDIRECTED [facility] Last Admin: 06/14/16 10:29 Dose: 40 mls/hr Levofloxacin/Dextrose 250 mg/ (Premix) 50 mls @ 50 mls/hr IV Q24H [facility] Ibuprofen (Motrin) 600 mg PO Q6H PRN PRN Reason: Pain (mild 1-3) Last Admin: 06/12/16 16:11 Dose: 600 mg Lisinopril (Prinivil) 2.5 mg PO MoWeFr@0900 [facility] Last Admin: 06/14/16 08:41 Dose: 2.5 mg Lorazepam (Ativan) 1 mg IVPUSH Q6H PRN PRN Reason: Anxiety Last Admin: 06/12/16 07:26 Dose: 1 mg Metoprolol Succinate (Toprol Xl) 25 mg PO DAILY [facility] Last Admin: 06/14/16 07:35 Dose: 25 mg Non-Formulary Medication (Fish Oil/Rosanky-3 Fatty Acids [Fish Oil]) 1,200 mg PO DAILY PRN PRN Reason: Supplement Ondansetron HCl (Zofran) 4 mg IV Q6H PRN PRN Reason: Nausea/Vomiting Potassium Chloride (Klor-Con 10) 20 meq PO BIDMEALS [facility] Last Admin: 06/14/16 07:33 Dose: 20 meq Risperidone (Risperidal) 0.25 mg PO BID [facility] Last Admin: 06/14/16 07:34 Dose: 0.25 mg Simvastatin (Zocor) 20 mg PO BEDTIME [facility] Last Admin: 06/13/16 20:24 Dose: 20 mg Discontinued Medications Enoxaparin Sodium (Lovenox) 40 mg SUBCUT Q24H [facility] Last Admin: 06/12/16 14:33 Dose: 40 mg Furosemide (Lasix) 60 mg PO DAILY [facility] Last Admin: 06/14/16 07:33 Dose: 60 mg Haloperidol Lactate (Haldol) 2 mg IVPUSH ONETIME ONE Stop: 06/11/16 20:01 Haloperidol Lactate (Haldol) 2.5 mg IVPUSH ONETIME ONE Stop: 06/11/16 20:01 Last Admin: 06/11/16 19:41 Dose: 2.5 mg Sodium Chloride (Normal Saline) 500 mls @ 500 mls/hr IV .BOLUS [facility] Last Admin: 06/11/16 15:05 Dose: 500 mls/hr Potassium Chloride/Sodium Chloride (Normal Saline With 20 Meq Kcl) 1,000 mls @ 100 mls/hr IV ASDIRECTED [facility] Potassium Chloride/Sodium Chloride (Normal Saline With 20 Meq Kcl) 1,000 mls @ 100 mls/hr IV ASDIRECTED [facility] Stop: 06/13/16 08:00 Last Admin: 06/12/16 05:04 Dose: 100 mls/hr Metronidazole 500 mg/ Premix 100 mls @ 100 mls/hr IV Q8H [facility] Last Admin: 06/12/16 06:27 Dose: 100 mls/hr Potassium Chloride/Sodium Chloride (Normal Saline With 20 Meq Kcl) 1,000 mls @ 100 mls/hr IV ASDIRECTED [facility] Potassium Chloride 40 meq/ (Premix) 100 mls @ 25 mls/hr IV ONETIME ONE Stop: 06/12/16 12:32 Last Admin: 06/12/16 08:52 Dose: 25 mls/hr Levofloxacin/Dextrose 500 mg/ (Premix) 100 mls @ 100 mls/hr IV Q24H [facility] Last Admin: 06/12/16 14:33 Dose: 100 mls/hr Levofloxacin/Dextrose 500 mg/ (Premix) 100 mls @ 100 mls/hr IV Q24H [facility] Clindamycin Phosphate 300 mg/ (Premix) 50 mls @ 100 mls/hr IV Q6H [facility] Last Admin: 06/14/16 06:07 Dose: 100 mls/hr Clindamycin Phosphate 300 mg/ (Premix) 50 mls @ 100 mls/hr IV ONETIME ONE Stop: 06/13/16 09:44 Last Admin: 06/13/16 09:36 Dose: 100 mls/hr Levofloxacin/Dextrose 500 mg/ (Premix) 100 mls @ 100 mls/hr IV ONETIME ONE Stop: 06/14/16 10:29 Last Admin: 06/14/16 10:32 Dose: 100 mls/hr Loperamide HCl (Imodium) 2 mg PO ONETIME ONE Stop: 06/11/16 13:14 Last Admin: 06/11/16 13:43 Dose: 2 mg Loperamide HCl (Imodium) 2 mg PO ONETIME ONE Stop: 06/11/16 15:14 Last Admin: 06/11/16 15:44 Dose: 2 mg Lorazepam (Ativan) 1 mg IVPUSH ONETIME ONE Stop: 06/11/16 14:55 Last Admin: 06/11/16 15:24 Dose: 1 mg Lorazepam (Ativan) Confirm Administered Dose 2 mg .ROUTE .STK-MED ONE Stop: 06/11/16 15:07 Last Admin: 06/11/16 15:37 Dose: Not Given Lorazepam (Ativan) 1 mg IVPUSH ONETIME ONE Stop: 06/11/16 14:46 Last Admin: 06/11/16 14:45 Dose: 1 mg Lorazepam (Ativan) 1 mg IVPUSH ONETIME ONE Stop: 06/11/16 14:51 Last Admin: 06/11/16 14:50 Dose: 1 mg Risperidone (Risperidal) 0.5 mg PO BID [facility] Last Admin: 06/13/16 09:38 Dose: Not Given Vancomycin HCl (Vancocin 125 Mg/2.5 Ml Soln) 500 mg PO QID [facility] Last Admin: 06/12/16 07:50 Dose: 500 mg Vancomycin HCl (Vancomycin) Confirm Administered Dose 1 gm .ROUTE .STK-MED ONE Stop: 06/12/16 07:52 Last Admin: 06/12/16 07:50 Dose: Not Given - Exam General: alert, no acute distress. No: oriented HEENT: Mucous membr. moist/pink Neck: supple Lungs: Clear to auscultation, Normal respiratory effort Cardiovascular: regular rate Abdomen: bowel sounds present, soft, no tenderness Extremities: no edema Skin: warm, dry Neurological: no new focal deficit - Problem List & Annotations (1) Altered mental status SNOMED Code(s): 594857417 Code(s): R41.82 - ALTERED MENTAL STATUS, UNSPECIFIED Status: Acute Priority: High Current Visit: Yes Qualifiers: Altered mental status type: disorientation Qualified Code(s): R41.0 - Disorientation, unspecified (2) Hypokalemia SNOMED Code(s): 74238647 Code(s): E87.6 - HYPOKALEMIA Status: Acute Priority: High Current Visit : Yes (3) Dementia SNOMED Code(s): 85767129 Code(s): F03.90 - UNSPECIFIED DEMENTIA WITHOUT BEHAVIORAL DISTURBANCE Status: Chronic Priority: Medium Current Visit: Yes Qualifiers: Dementia behavioral disturbance: with behavioral disturbance - Problem List Review Problem List Initiated/Reviewed/Updated: Yes - My Orders Last 24 Hours: My Active Orders 06/13/16 Lunch Thickened Liquids [DIET] 06/14/16 09:15 Sodium Chloride 0.45% with KCl [1/2 NS with 20 mEq KCl] 1,000 ml IV ASDIRECTED 06/15/16 05:11 C-REACTIVE PROTEIN [CHEM] DAILY 06/15/16 08:00 Furosemide [Lasix] 40 mg PO DAILY Levofloxacin/Dextrose 5%-Water [Levaquin in D5W 250 MG/50 ML] 250 mg Premix Bag 1 bag IV Q24H 06/16/16 05:11 C-REACTIVE PROTEIN [CHEM] DAILY - Assessment Assessment:: Hypokalemia Diarrhea Altered Mental Status - Plan Plan:: Patient is sleepy this am. Nurse reports he was restless earlier this am. Has been uncooperative, combative at times. Had one loose stool since admission. Stool culture and c diff ordered. Awaiting results. Vitals noted. Blood pressure elevated at times. Afebrile. Labs reviewed. WBC 13.5, CRP was normal yesterday. Potassium still low at 2.8. Magnesium normal at 1.8. Will continue with Gogoo and Flagyl until c diff report received. IV potassium 40 meq ordered as well as added Kdur 20 meq BID. Will reevaluate labs in am. Discharge plan to transfer to long-term as no longer able to care for him and it has been very difficult caring for him since his discharge last week. 06-13-2016 Patient more sleepy this am. Did get risperdal last evening due to increased behaviors during the day and patient slept all night. Able to awaken the patient after exam for breakfast. Does not answer questions. Does attempt to feed self though. at bedside. Lab changes noted. WBC up to 27.4 today from 13 yesterday. CRP also up now to 8.5. Question possible aspiration as has been having trouble with liquids and coughs while eating. Afebrile today and had not been able to find source of infection and now labs are worsening. Will stop Levaquin. Get a chest xray. Start Cleocin. Nebs and RT to evaluate. Inappropriate for discharge yet at this time. 06-14-2016 Patient much more alert today. Feeding self breakfast. Behaviors better controlled. Edema improved. Urine culture back and positive. Chest xray unremarkable. Labs improved today. WBC down to 17.9 today. Creatinine has increased over the last 2 days to 1.7, up from 1.0. ProBNP is much improved now. Will stop Cleocin due to positive urine culture and better coverage with Levaquin. As his creatinine is increased, will start low rate 1/2 NS and correct his potassium with 20 meq in each bag. Will reduce his Lasix to 40 mg daily. Continue comfort cares due to infection, behaviors, and dementia. Possible transfer to [place] once stable.
[2016-06-14] MEDS: ALPRAZolam 0.25 MG Tab PO PRN (16:59)
[2016-06-14] MEDS: Simvastatin 20 MG Tab PO SCH (19:46)
[2016-06-14] MEDS: Acetaminophen 325 MG Tab PO PRN (19:47)
[2016-06-14] MEDS: LORazepam 2 MG/ML Syringe IVPUSH PRN (19:48)
[2016-06-15 07:59] VITALS: BP 162/93
[2016-06-15] MEDS ORDERED: Furosemide 40 MG Tab PO SCH (08:00)
[2016-06-15] MEDS ORDERED: Levofloxacin/Dextrose 5%-Water 250 MG in Premix Bag 1 BAG IV SCH (08:00)
[2016-06-15] MEDS: Albuterol/Ipratropium 3.0-0.5 MG/3 ML Neb Soln NEB SCH (09:31)
[2016-06-15] MEDS: Enoxaparin 40 MG/0.4 ML Syringe SUBCUT SCH (11:34)
[2016-06-15] MEDS: Potassium Chloride 10 MEQ Tab.ER PO SCH (11:35)
--- NOTE | 2016-06-15 12:15 | PCM.DCSUM1 ---
Discharge Summary - Hospital Course Free Text/Narrative:: Patient admitted to acute with increased confusion, weakness and increased behaviors. was having difficulty handling the patient at home. Has had increasing confusion over the last 5-6 weeks but even more so since last discharge from the hospital. Had been having increased loose stools, incontinence and had fallen. had much difficulty assisting the patient and getting him up from the floor due to weakness. ER work up was negative for influenza. Blood cultures were ordered and negative. Work up did include stool culture and c-diff which were both negative. - Discharge Data Discharge Date: 06/15/16 Discharge Disposition: Home, Self-Care 01 Condition: Poor - Discharge Diagnosis/Problem(s) (1) Altered mental status SNOMED Code(s): 758305299 ICD Code: R41.82 - ALTERED MENTAL STATUS, UNSPECIFIED Status: Acute Priority: High Qualifiers: Altered mental status type: disorientation Qualified Code(s): R41.0 - Disorientation, unspecified (2) Hypokalemia SNOMED Code(s): 40429600 ICD Code: E87.6 - HYPOKALEMIA Status: Acute Priority: High (3) Dementia SNOMED Code(s): 66265419 ICD Code: F03.90 - UNSPECIFIED DEMENTIA WITHOUT BEHAVIORAL DISTURBANCE Status: Chronic Priority: Medium Qualifiers: Dementia behavioral disturbance: with behavioral disturbance - Patient Summary/Data Complications: none Consults: Consultations 06/11/16 18:30 Consult to [employer] [CONS] Routine 06/12/16 14:19 Consult to Physical Therapy [PT Evaluation and Treatment] [CONS] Routine 06/13/16 09:03 Respiratory Care Assess and Treatment [CONS] Routine Hospital Course: Patient has had ongoing concerns with sedation versus aggression during acute stay. Diarrhea subsided after admission with one dose of Immodium, stool culture negative. Blood cultures negative. Chest xray was done to rule out aspiration pneumonia. Had been switched to Cleocin due to that concern. Eventually, urine culture did show positive results and patient switched back to Levaquin to get better coverage. He was started on Risperdal to control his behaviors. Still struggling yet with that at times but is also sedated off and on. He has had overall improvement of his WBC from 27 down to 14.8. CRP improved. Will continue with IV Levaquin in swing bed, PT and OT. REspiratory care as needed. Plan to transfer to long term when able. Continue comfort cares due to dementia, infection and ejection fraction of heart at 15%. On Lasix as well and has had improvement of his heart failure. - Patient Instructions Diet: Usual Diet as Tolerated Activity: As Tolerated - Discharge Plan Home Medications: Home Meds ALPRAZolam [Xanax] 0.5 - 1 tab PO Q6H PRN 12/16/13 [History] Clopidogrel [Plavix] 75 mg PO DAILY 12/16/13 [History] Fish Oil/Exline-3 Fatty Acids [Fish Oil] 1,200 mg PO DAILY PRN 12/16/13 [History] Lisinopril 2.5 mg PO MOWEFR 12/16/13 [History] Metoprolol Succinate 25 mg PO DAILY 12/16/13 [History] Simvastatin [Zocor] 20 mg PO BEDTIME 12/16/13 [History] Polyethylene Glycol 3350 [Miralax] 17 gm PO DAILY 12/19/13 [History] Furosemide [Lasix] 60 mg PO DAILY #30 tablet 06/07/16 [Rx] Forms: ED Department Discharge Referrals: Noe Cueto MD [Primary Care Provider] - - Discharge Summary/Plan Comment DC Time >30 min.: Yes Discharge Summary/Plan Comment: Transfer to swing bed. Continue IV Levaquin. PT and OT. Comfort cares. - General Info Date of Service: 06/15/16 Admission Dx/Problem (Free Text: Hypokalemia Confusion Functional Status: Reports: pain controlled, tolerating diet. Denies: ambulating - Review of Systems General: Reports: weakness, fatigue, other (ROS from patient unobtainable.). Denies: fever HEENT: Reports: no symptoms Pulmonary: Reports: cough. Denies: shortness of breath, wheezing Genitourinary: Reports: incontinence Psychiatric: Reports: confusion, agitation - Patient Data Vitals - Most Recent: Last Vital Signs Temp 98.2 F 06/15/16 07:58 Pulse 99 06/15/16 07:58 Resp 20 06/15/16 07:58 BP 162/93 H 06/15/16 07:58 Pulse Ox 92 L 06/15/16 07:58 Weight - Most Recent: 183 lb 12.8 oz Lab Results - Last 24 hrs: Laboratory Results - last 24 hr 06/15/16 06/15/16 Range/Units 07:42 07:42 WBC 14.8 H (5.0-10.0) 10^3/uL RBC 4.42 L (4.50-6.00) 10^6/uL Hgb 13.4 L (14.0-18.0) g/dL Hct 38.8 L (40.0-54.0) % MCV 87.8 (82.0-94.0) fL MCH 30.3 (27.0-32.0) pg MCHC 34.5 (33.0-38.0) g/dL RDW Coeff of Amadeo 13.5 (11.0-15.0) % Plt Count 160 (150-400) 10^3/uL Neut % (Auto) 77.2 (35-85) % Lymph % (Auto) 13.5 (10-55) % [place] % (Auto) 8.8 (0-16) % Eos % (Auto) 0.4 (0-5) % Baso % (Auto) 0.1 (0-3) % Neut # 11.42 H (1.80-7.00) 10^3/uL Lymph # 1.99 (1.00-4.80) 10^3/uL [place] # 1.30 H (0.00-0.80) 10^3/uL Eos # 0.06 (0.00-0.45) 10^3/uL Baso # 0.01 10^3/uL Sodium 139 (136-145) mEq/L Potassium 3.5 (3.5-5.0) mEq/L Chloride 104 (98-106) mEq/L Carbon Dioxide 27 (21-32) mmol/L BUN 24 H (7-18) mg/dL Creatinine 1.5 H (0.7-1.3) mg/dL Est Cr Clr Drug Dosing 41.67 mL/min Estimated GFR (MDRD) 45 L (>=60) mL/min Glucose 111 H (75-99) mg/dL Calcium 8.6 (8.4-10.1) mg/dL C-Reactive Protein 5.0 H (0.2-0.8) mg/dL [id number] Pept 3030 H (0-1000) pg/nL MONSE Results - Last 24 hrs: Microbiology 06/12/16 07:00 Stool Aerobic Culture - Preliminary Stool / Feces 06/12/16 14:00 Urine Culture - Final Urine, Voided Enterococcus Faecalis Klebsiella Oxytoca Med Orders - Current: Current Medications Discontinued Medications Acetaminophen (Tylenol) 650 mg PO Q4H PRN PRN Reason: Pain (Mild 1-3)/fever Last Admin: 06/14/16 19:47 Dose: 650 mg Acetaminophen (Tylenol) 650 mg RECTAL Q4H PRN PRN Reason: Fever Last Admin: 06/12/16 13:49 Dose: 650 mg Albuterol/Ipratropium (Duoneb 3.0-0.5 Mg/3 Ml) 3 ml NEB QIDRT [facility] Last Admin: 06/15/16 09:31 Dose: 3 ml Alprazolam (Xanax) 1 mg PO Q6H PRN PRN Reason: Anxiety/Sleep Last Admin: 06/14/16 16:59 Dose: 1 mg Clopidogrel Bisulfate (Plavix) 75 mg PO DAILY [facility] Last Admin: 06/14/16 07:34 Dose: 75 mg Enoxaparin Sodium (Lovenox) 40 mg SUBCUT Q24H [facility] Last Admin: 06/12/16 14:33 Dose: 40 mg Enoxaparin Sodium (Lovenox) 40 mg SUBCUT Q24H [facility] Last Admin: 06/15/16 11:34 Dose: 40 mg Furosemide (Lasix) 60 mg PO DAILY [facility] Last Admin: 06/14/16 07:33 Dose: 60 mg Furosemide (Lasix) 40 mg PO DAILY [facility] Haloperidol Lactate (Haldol) 2 mg IVPUSH ONETIME ONE Stop: 06/11/16 20:01 Haloperidol Lactate (Haldol) 2.5 mg IVPUSH ONETIME ONE Stop: 06/11/16 20:01 Last Admin: 06/11/16 19:41 Dose: 2.5 mg Sodium Chloride (Normal Saline) 500 mls @ 500 mls/hr IV .BOLUS [facility] Last Admin: 06/11/16 15:05 Dose: 500 mls/hr Potassium Chloride/Sodium Chloride (Normal Saline With 20 Meq Kcl) 1,000 mls @ 100 mls/hr IV ASDIRECTED [facility] Potassium Chloride/Sodium Chloride (Normal Saline With 20 Meq Kcl) 1,000 mls @ 100 mls/hr IV ASDIRECTED [facility] Stop: 06/13/16 08:00 Last Admin: 06/12/16 05:04 Dose: 100 mls/hr Metronidazole 500 mg/ Premix 100 mls @ 100 mls/hr IV Q8H [facility] Last Admin: 06/12/16 06:27 Dose: 100 mls/hr Potassium Chloride/Sodium Chloride (Normal Saline With 20 Meq Kcl) 1,000 mls @ 100 mls/hr IV ASDIRECTED [facility] Potassium Chloride 40 meq/ (Premix) 100 mls @ 25 mls/hr IV ONETIME ONE Stop: 06/12/16 12:32 Last Admin: 06/12/16 08:52 Dose: 25 mls/hr Levofloxacin/Dextrose 500 mg/ (Premix) 100 mls @ 100 mls/hr IV Q24H [facility] Last Admin: 06/12/16 14:33 Dose: 100 mls/hr Levofloxacin/Dextrose 500 mg/ (Premix) 100 mls @ 100 mls/hr IV Q24H [facility] Clindamycin Phosphate 300 mg/ (Premix) 50 mls @ 100 mls/hr IV Q6H [facility] Last Admin: 06/14/16 06:07 Dose: 100 mls/hr Clindamycin Phosphate 300 mg/ (Premix) 50 mls @ 100 mls/hr IV ONETIME ONE Stop: 06/13/16 09:44 Last Admin: 06/13/16 09:36 Dose: 100 mls/hr Levofloxacin/Dextrose 500 mg/ (Premix) 100 mls @ 100 mls/hr IV ONETIME ONE Stop: 06/14/16 10:29 Last Admin: 06/14/16 10:32 Dose: 100 mls/hr Potassium Chloride/Sodium Chloride (1/2 Ns With 20 Meq Kcl) 1,000 mls @ 40 mls/ hr IV ASDIRECTED [facility] Last Admin: 06/14/16 10:29 Dose: 40 mls/hr Levofloxacin/Dextrose 250 mg/ (Premix) 50 mls @ 50 mls/hr IV Q24H [facility] Last Admin: 06/15/16 11:34 Dose: 50 mls/hr Ibuprofen (Motrin) 600 mg PO Q6H PRN PRN Reason: Pain (mild 1-3) Last Admin: 06/12/16 16:11 Dose: 600 mg Lisinopril (Prinivil) 2.5 mg PO MoWeFr@0900 [facility] Last Admin: 06/14/16 08:41 Dose: 2.5 mg Loperamide HCl (Imodium) 2 mg PO ONETIME ONE Stop: 06/11/16 13:14 Last Admin: 06/11/16 13:43 Dose: 2 mg Loperamide HCl (Imodium) 2 mg PO ONETIME ONE Stop: 06/11/16 15:14 Last Admin: 06/11/16 15:44 Dose: 2 mg Lorazepam (Ativan) 1 mg IVPUSH Q6H PRN PRN Reason: Anxiety Last Admin: 06/14/16 19:48 Dose: 1 mg Lorazepam (Ativan) 1 mg IVPUSH ONETIME ONE Stop: 06/11/16 14:55 Last Admin: 06/11/16 15:24 Dose: 1 mg Lorazepam (Ativan) Confirm Administered Dose 2 mg .ROUTE .STK-MED ONE Stop: 06/11/16 15:07 Last Admin: 06/11/16 15:37 Dose: Not Given Lorazepam (Ativan) 1 mg IVPUSH ONETIME ONE Stop: 06/11/16 14:46 Last Admin: 06/11/16 14:45 Dose: 1 mg Lorazepam (Ativan) 1 mg IVPUSH ONETIME ONE Stop: 06/11/16 14:51 Last Admin: 06/11/16 14:50 Dose: 1 mg Metoprolol Succinate (Toprol Xl) 25 mg PO DAILY [facility] Last Admin: 06/14/16 07:35 Dose: 25 mg Non-Formulary Medication (Fish Oil/Exline-3 Fatty Acids [Fish Oil]) 1,200 mg PO DAILY PRN PRN Reason: Supplement Ondansetron HCl (Zofran) 4 mg IV Q6H PRN PRN Reason: Nausea/Vomiting Potassium Chloride (Klor-Con 10) 20 meq PO BIDMEALS [facility] Last Admin: 06/15/16 11:35 Dose: Not Given Risperidone (Risperidal) 0.5 mg PO BID [facility] Last Admin: 06/13/16 09:38 Dose: Not Given Risperidone (Risperidal) 0.25 mg PO BID [facility] Last Admin: 06/14/16 19:46 Dose: 0.25 mg Simvastatin (Zocor) 20 mg PO BEDTIME [facility] Last Admin: 06/14/16 19:46 Dose: 20 mg Vancomycin HCl (Vancocin 125 Mg/2.5 Ml Soln) 500 mg PO QID [facility] Last Admin: 06/12/16 07:50 Dose: 500 mg Vancomycin HCl (Vancomycin) Confirm Administered Dose 1 gm .ROUTE .STK-MED ONE Stop: 06/12/16 07:52 Last Admin: 06/12/16 07:50 Dose: Not Given - Exam General: Reports: other (varies from sedation to aggressive at times.) HEENT: Reports: Mucous membr. moist/pink Neck: Reports: supple Lungs: Reports: Decreased breath sounds, Rhonchi (noted anterior) Cardiovascular: Reports: regular rate, regular rhythm Abdomen: Reports: bowel sounds present, soft, no tenderness Extremities: Reports: no edema Neurological: Reports: no new focal deficit Psy/Mental Status: Reports: alert, normal affect, normal mood *Q Meaningful Use (DIS) - VTE *Q VTE Criteria *Q: - Stroke *Q Stroke Criteria *Q: - AMI *Q AMI Criteria *Q:
== END 2016-06-15 11:00 | disposition home or self-care (01) | DRG 641 ==
LOC: CC.ED 11:05 → CC.MS 14:04 → UNDOADMIN 14:20 → CC.MS 14:20 → UNDOADMIN 14:38 → CC.MS 14:38 → UNDODISIN 06-15 11:00
PROVIDERS: ADMIT Nurse Practitioner; ATTEND Family Medicine
DX: E87.6 Hypokalemia (principal); E86.0 Dehydration; R32 Unspecified urinary incontinence; R41.0 Disorientation, unspecified; E78.00 Pure hypercholesterolemia, unspecified; F41.9 Anxiety disorder, unspecified; K59.09 Other constipation; Z95.0 Presence of cardiac pacemaker; Z87.891 Personal history of nicotine dependence; R15.9 Full incontinence of feces; R41.82 Altered mental status, unspecified; F03.90 Unspecified dementia, unspecified severity, without behavioral disturbance, psychotic disturbance, mood disturbance, and anxiety; R19.7 Diarrhea, unspecified
CPT/HCPCS: 36415; 70450; 71010; 80053; 83605; 83880; 84484; 85025; 86140; 87040 ×2; 93005; 99285; A9270; 51702; 80048; 81001; 83735; 87045; 87046; 87086; 87088; 87186; 87493; 87804; 89055; 93010; 94640; 94640-76; 97162-GP; J1630; J1650; J1956; J2060; J3480; J7040

== ENCOUNTER 2016-06-15 11:39 | Inpatient (IN) | payer MEDICARE, OTHER ==
[2016-06-15] MEDS ORDERED: FISH OIL PO PRN (11:41)
[2016-06-15] MEDS ORDERED: LORazepam 2 MG/ML Syringe IVPUSH PRN (11:41)
[2016-06-15] MEDS ORDERED: ALPRAZolam 0.25 MG Tab PO PRN (11:41)
[2016-06-15] MEDS ORDERED: Acetaminophen 650 MG Supp RECTAL PRN (11:41)
[2016-06-15] MEDS ORDERED: risperiDONE 0.25 MG Tab PO PRN (11:41)
[2016-06-15] MEDS ORDERED: Ondansetron 4 MG/2 ML SDV IV PRN (11:41)
[2016-06-15] MEDS ORDERED: FATTY ACIDS PO PRN (11:41)
[2016-06-15] MEDS ORDERED: Ibuprofen 200 MG Tab PO PRN (11:41)
[2016-06-15] MEDS ORDERED: OMEGA PO PRN (11:41)
[2016-06-15] MEDS: Albuterol/Ipratropium 3.0-0.5 MG/3 ML Neb Soln NEB SCH ×3 (13:13→20:30)
[2016-06-15] MEDS: Potassium Chloride 10 MEQ Tab.ER PO SCH ×2 (14:50→20:31)
[2016-06-15] MEDS: Clopidogrel 75 MG Tab PO SCH (14:51)
[2016-06-15] MEDS: Furosemide 40 MG Tab PO SCH (14:52)
[2016-06-15] MEDS: Metoprolol Succinate 25 MG Tab.ER PO SCH (14:52)
[2016-06-15] MEDS: risperiDONE 0.25 MG Tab PO SCH ×2 (14:53→20:30)
[2016-06-15] MEDS: Simvastatin 20 MG Tab PO SCH (20:30)
[2016-06-16] MEDS: Potassium Chloride 10 MEQ Tab.ER PO SCH ×2 (07:24→17:28)
[2016-06-16] MEDS: Enoxaparin 40 MG/0.4 ML Syringe SUBCUT SCH (07:24)
[2016-06-16] MEDS: Furosemide 40 MG Tab PO SCH (07:24)
[2016-06-16] MEDS: Clopidogrel 75 MG Tab PO SCH (07:25)
[2016-06-16] MEDS: Metoprolol Succinate 25 MG Tab.ER PO SCH (07:25)
[2016-06-16] MEDS: risperiDONE 0.25 MG Tab PO SCH ×2 (07:25→19:41)
[2016-06-16] MEDS: Levofloxacin/Dextrose 5%-Water 250 MG in Premix Bag 1 BAG IV SCH (07:28)
[2016-06-16] MEDS: Lisinopril 5 MG Tab PO SCH (09:07)
[2016-06-16] MEDS: Albuterol/Ipratropium 3.0-0.5 MG/3 ML Neb Soln NEB SCH ×4 (09:15→21:10)
[2016-06-16] MEDS: Acetaminophen 325 MG Tab PO PRN (19:41)
[2016-06-16] MEDS: Simvastatin 20 MG Tab PO SCH (19:41)
[2016-06-17] MEDS: Potassium Chloride 10 MEQ Tab.ER PO SCH ×2 (08:26→16:58)
[2016-06-17] MEDS: risperiDONE 0.25 MG Tab PO SCH ×2 (08:27→19:35)
[2016-06-17] MEDS: Clopidogrel 75 MG Tab PO SCH (08:27)
[2016-06-17] MEDS: Furosemide 40 MG Tab PO SCH (08:27)
[2016-06-17] MEDS: Metoprolol Succinate 25 MG Tab.ER PO SCH (08:27)
[2016-06-17] MEDS: Levofloxacin/Dextrose 5%-Water 250 MG in Premix Bag 1 BAG IV SCH (08:29)
[2016-06-17] MEDS: Enoxaparin 40 MG/0.4 ML Syringe SUBCUT SCH (08:29)
[2016-06-17] MEDS: Albuterol/Ipratropium 3.0-0.5 MG/3 ML Neb Soln NEB SCH ×4 (08:31→20:54)
[2016-06-17] MEDS: Acetaminophen 325 MG Tab PO PRN (19:34)
[2016-06-17] MEDS: Simvastatin 20 MG Tab PO SCH (19:36)
[2016-06-18] MEDS: Acetaminophen 325 MG Tab PO PRN (03:28)
[2016-06-18] MEDS: Clopidogrel 75 MG Tab PO SCH (08:12)
[2016-06-18] MEDS: Furosemide 40 MG Tab PO SCH (08:12)
[2016-06-18] MEDS: Potassium Chloride 10 MEQ Tab.ER PO SCH ×2 (08:12→16:50)
[2016-06-18] MEDS: risperiDONE 0.25 MG Tab PO SCH ×2 (08:12→19:26)
[2016-06-18] MEDS: Metoprolol Succinate 25 MG Tab.ER PO SCH (08:12)
[2016-06-18] MEDS: Enoxaparin 40 MG/0.4 ML Syringe SUBCUT SCH (08:13)
[2016-06-18] MEDS: Albuterol/Ipratropium 3.0-0.5 MG/3 ML Neb Soln NEB SCH ×4 (08:13→20:24)
[2016-06-18] MEDS: Levofloxacin/Dextrose 5%-Water 250 MG in Premix Bag 1 BAG IV SCH (08:15)
[2016-06-18] MEDS: Simvastatin 20 MG Tab PO SCH (19:26)
[2016-06-19] MEDS: Lisinopril 5 MG Tab PO SCH (08:25)
[2016-06-19] MEDS: Enoxaparin 40 MG/0.4 ML Syringe SUBCUT SCH (08:25)
[2016-06-19] MEDS: Potassium Chloride 10 MEQ Tab.ER PO SCH ×2 (08:26→16:34)
[2016-06-19] MEDS: Clopidogrel 75 MG Tab PO SCH (08:27)
[2016-06-19] MEDS: Metoprolol Succinate 25 MG Tab.ER PO SCH (08:27)
[2016-06-19] MEDS: risperiDONE 0.25 MG Tab PO SCH ×2 (08:27→19:21)
[2016-06-19] MEDS: Furosemide 40 MG Tab PO SCH (08:27)
[2016-06-19] MEDS: Levofloxacin/Dextrose 5%-Water 250 MG in Premix Bag 1 BAG IV SCH (08:29)
[2016-06-19] MEDS: Albuterol/Ipratropium 3.0-0.5 MG/3 ML Neb Soln NEB SCH ×4 (09:51→21:22)
[2016-06-19] MEDS: Simvastatin 20 MG Tab PO SCH (19:22)
[2016-06-20] MEDS: Potassium Chloride 10 MEQ Tab.ER PO SCH (08:14)
[2016-06-20] MEDS: Clopidogrel 75 MG Tab PO SCH (08:15)
[2016-06-20] MEDS: risperiDONE 0.25 MG Tab PO SCH (08:15)
[2016-06-20] MEDS: Furosemide 40 MG Tab PO SCH (08:15)
[2016-06-20] MEDS: Metoprolol Succinate 25 MG Tab.ER PO SCH (08:15)
[2016-06-20] MEDS: Enoxaparin 40 MG/0.4 ML Syringe SUBCUT SCH (08:15)
[2016-06-20 08:16] VITALS: BP 131/80
[2016-06-20] MEDS: Levofloxacin/Dextrose 5%-Water 250 MG in Premix Bag 1 BAG IV SCH (08:21)
--- NOTE | 2016-06-20 08:56 | PCM.DCSUM1 ---
Discharge Summary - Hospital Course Free Text/Narrative:: Patient admitted to hospital with increased confusion and weakness. Had previously been in the hospital for 2 days for CHF/edema and was diuresed appropriately and had much improvement of his edema. states that he became much more difficult to care for at home, confusion was worsening and he fell. Had fallen and she had much difficulty getting him up from the floor. Was more confused, aggressive. Had developed diarrhea and was incontinent. Work up was done in the ER on arrival. Potassium was low at 2.7, WBC was high at 27.6 Stool cultures were collected as well as C Diff. Both were negative. Initial UA only showed small amount of leucocytes. Admitted for hydration, potassium IV and started on Rocephin - Discharge Data Discharge Date: 06/20/16 Discharge Disposition: DC/Tfer to [facility] Condition: Good - Patient Summary/Data Complications: none Consults: Consultations 06/15/16 11:41 Consult to Physical Therapy [PT Evaluation and Treatment] [CONS] Routine Consult to Rail Car [employer] [CONS] Routine Respiratory Care Assess and Treatment [CONS] Routine Hospital Course: Patient did have slow improvement overall of his status. Potassium did respond nicely to IV and oral replacement. Today, potassium 3.4. Did develop increased CHF concerns due to IV fluids, diuresed well with IV Lasix and now is stable. C Diff and stool cultures were negative. Blood cultures negative. Were initially concerned that patient had developed aspiration pneumonia due to cough and WBC. Cleocin was added. On day 2, urine cultures were positive for enterococcus and klebsiella that were sensitive for Levaquin so was switched to that. Patient was very aggressive during first few days of stay, biting and hitting staff, uncooperative. Was started on Risperdal. Is still restless at times but more appropriate. Echo report noted. Patient has low ejection fracture. Family aware, would like to continue with comfort cares at this point. - Patient Instructions Diet: Usual Diet as Tolerated Activity: As Tolerated - Discharge Plan Prescriptions/Med Rec: Levofloxacin [Levaquin] 500 mg PO Q24H #5 tablet Potassium Chloride [Klor-Con 10] 20 meq PO BIDMEALS #60 tab.er risperiDONE [RisperiDAL] 0.25 mg PO DAILY PRN #30 tablet PRN Reason: Agitation risperiDONE [RisperiDAL] 0.25 mg PO BID #60 tablet Home Medications: Home Meds ALPRAZolam [Xanax] 0.5 - 1 tab PO Q6H PRN 12/16/13 [History] Clopidogrel [Plavix] 75 mg PO DAILY 12/16/13 [History] Fish Oil/[place]-3 Fatty Acids [Fish Oil] 1,200 mg PO DAILY PRN 12/16/13 [History] Lisinopril 2.5 mg PO MOWEFR 12/16/13 [History] Metoprolol Succinate 25 mg PO DAILY 12/16/13 [History] Simvastatin [Zocor] 20 mg PO BEDTIME 12/16/13 [History] Polyethylene Glycol 3350 [Miralax] 17 gm PO DAILY 12/19/13 [History] Furosemide [Lasix] 60 mg PO DAILY #30 tablet 06/07/16 [Rx] Levofloxacin [Levaquin] 500 mg PO Q24H #5 tablet 06/20/16 [Rx] Potassium Chloride [Klor-Con 10] 20 meq PO BIDMEALS #60 tab.er 06/20/16 [Rx] risperiDONE [RisperiDAL] 0.25 mg PO BID #60 tablet 06/20/16 [Rx] risperiDONE [RisperiDAL] 0.25 mg PO DAILY PRN #30 tablet 06/20/16 [Rx] - Discharge Summary/Plan Comment DC Time >30 min.: Yes Discharge Summary/Plan Comment: Discharge to [facility]. Will continue Levaquin 500 mg for 5 more days. Continue Risperdal and Ativan. Oral potassium. Discharge time 40 minutes with completion of exam, documentation and orders. - General Info Date of Service: 06/20/16 Admission Dx/Problem (Free Text: Altered Mental Status CHF Hypokalemia UTI Functional Status: Reports: tolerating diet. Denies: ambulating - Review of Systems General: Reports: weakness. Denies: fever, fatigue HEENT: Reports: rhinitis. Denies: sinus congestion, sore throat Pulmonary: Denies: shortness of breath, cough, wheezing Cardiovascular: Denies: chest pain, edema Gastrointestinal: Denies: Abdominal pain, Diarrhea, Nausea, Vomiting Genitourinary: Reports: incontinence Musculoskeletal: Reports: no symptoms Psychiatric: Reports: agitation, other (restless at times) - Patient Data Vitals - Most Recent: Last Vital Signs Temp 98.4 F 06/20/16 08:00 Pulse 88 06/20/16 08:15 Resp 16 06/20/16 08:00 BP 131/80 06/20/16 08:15 Pulse Ox 96 06/20/16 08:00 Weight - Most Recent: 179 lb 11.2 oz Lab Results - Last 24 hrs: Laboratory Results - last 24 hr 06/20/16 06/20/16 Range/Units 08:03 08:18 WBC 14.6 H (5.0-10.0) 10^3/uL RBC 4.49 L (4.50-6.00) 10^6/uL Hgb 13.5 L (14.0-18.0) g/dL Hct 40.3 (40.0-54.0) % MCV 89.8 (82.0-94.0) fL MCH 30.1 (27.0-32.0) pg MCHC 33.5 (33.0-38.0) g/dL RDW Coeff of Amadeo 14.3 (11.0-15.0) % Plt Count 192 (150-400) 10^3/uL Neut % (Auto) 81.6 (35-85) % Lymph % (Auto) 10.2 (10-55) % [place] % (Auto) 8.0 (0-16) % Eos % (Auto) 0.1 (0-5) % Baso % (Auto) 0.1 (0-3) % Neut # 11.93 H (1.80-7.00) 10^3/uL Lymph # 1.49 (1.00-4.80) 10^3/uL [place] # 1.17 H (0.00-0.80) 10^3/uL Eos # 0.01 (0.00-0.45) 10^3/uL Baso # 0.01 10^3/uL Sodium 146 H (136-145) mEq/L Potassium 3.4 L (3.5-5.0) mEq/L Chloride 109 H (98-106) mEq/L Carbon Dioxide 29 (21-32) mmol/L BUN 22 H (7-18) mg/dL Creatinine 1.2 (0.7-1.3) mg/dL Est Cr Clr Drug Dosing 52.09 mL/min Estimated GFR (MDRD) 58 L (>=60) mL/min Glucose 127 H (75-99) mg/dL Calcium 8.5 (8.4-10.1) mg/dL C-Reactive Protein 3.0 H (0.2-0.8) mg/dL Med Orders - Current: Current Medications Acetaminophen (Tylenol) 650 mg PO Q4H PRN PRN Reason: Pain (Mild 1-3)/fever Last Admin: 06/18/16 03:28 Dose: 650 mg Acetaminophen (Tylenol) 650 mg RECTAL Q4H PRN PRN Reason: Fever Albuterol/Ipratropium (Duoneb 3.0-0.5 Mg/3 Ml) 3 ml NEB QIDRT [facility] Last Admin: 06/19/16 21:22 Dose: 3 ml Alprazolam (Xanax) 1 mg PO Q6H PRN PRN Reason: Anxiety/Sleep Clopidogrel Bisulfate (Plavix) 75 mg PO DAILY [facility] Last Admin: 06/20/16 08:15 Dose: 75 mg Enoxaparin Sodium (Lovenox) 40 mg SUBCUT Q24H [facility] Last Admin: 06/20/16 08:15 Dose: 40 mg Furosemide (Lasix) 40 mg PO DAILY [facility] Last Admin: 06/20/16 08:15 Dose: 40 mg Levofloxacin/Dextrose 250 mg/ (Premix) 50 mls @ 50 mls/hr IV Q24H [facility] Last Admin: 06/20/16 08:21 Dose: 50 mls/hr Ibuprofen (Motrin) 600 mg PO Q6H PRN PRN Reason: Pain (mild 1-3) Lisinopril (Prinivil) 2.5 mg PO MoWeFr@0900 [facility] Last Admin: 06/19/16 08:25 Dose: 2.5 mg Lorazepam (Ativan) 1 mg IVPUSH Q6H PRN PRN Reason: Anxiety Last Admin: 06/16/16 19:42 Dose: 1 mg Metoprolol Succinate (Toprol Xl) 25 mg PO DAILY [facility] Last Admin: 06/20/16 08:15 Dose: 25 mg Non-Formulary Medication (Fish Oil/[place]-3 Fatty Acids [Fish Oil]) 1,200 mg PO DAILY PRN PRN Reason: Supplement Ondansetron HCl (Zofran) 4 mg IV Q6H PRN PRN Reason: Nausea/Vomiting Potassium Chloride (Klor-Con 10) 20 meq PO BIDMEALS [facility] Last Admin: 06/20/16 08:14 Dose: 20 meq Risperidone (Risperidal) 0.25 mg PO DAILY PRN PRN Reason: Agitation Risperidone (Risperidal) 0.25 mg PO BID [facility] Last Admin: 06/20/16 08:15 Dose: 0.25 mg Simvastatin (Zocor) 20 mg PO BEDTIME [facility] Last Admin: 06/19/16 19:22 Dose: 20 mg - Exam General: Reports: alert, oriented (to person), cooperative (this am.) HEENT: Reports: Mucous membr. moist/pink Neck: Reports: supple Lungs: Reports: Clear to auscultation, Normal respiratory effort Cardiovascular: Reports: regular rate, regular rhythm Abdomen: Reports: bowel sounds present, soft, no tenderness Extremities: Reports: no edema Skin: Reports: warm, dry Neurological: Reports: no new focal deficit *Q Meaningful Use (DIS) - VTE *Q VTE Criteria *Q: - Stroke *Q Stroke Criteria *Q: - AMI *Q AMI Criteria *Q:
[2016-06-20] MEDS: Albuterol/Ipratropium 3.0-0.5 MG/3 ML Neb Soln NEB SCH (09:24)
== END 2016-06-20 10:20 | DRG 178 ==
LOC: CC.MS 11:41
PROVIDERS: ADMIT Family Medicine; ATTEND Family Medicine
DX: J69.0 Pneumonitis due to inhalation of food and vomit (principal); F03.91 Unspecified dementia, unspecified severity, with behavioral disturbance; Z51.5 Encounter for palliative care; E87.6 Hypokalemia; I50.9 Heart failure, unspecified; R15.9 Full incontinence of feces; R32 Unspecified urinary incontinence; Z95.1 Presence of aortocoronary bypass graft; Z95.0 Presence of cardiac pacemaker; H91.90 Unspecified hearing loss, unspecified ear; Z87.891 Personal history of nicotine dependence; B95.2 Enterococcus as the cause of diseases classified elsewhere; B96.1 Klebsiella pneumoniae [K. pneumoniae] as the cause of diseases classified elsewhere
CPT/HCPCS: 36415; 80048; 85025; 86140; 94640; 94640-76; 97530-GP; A9270-GY; J1650; J1956; J2060